=== PATIENT | female | born 1965 | race Caucasian/White ===

== ENCOUNTER 2016-09-16 17:03 | Emergency (ER) | payer OTHER ==
[~2016-09-16] VITALS: Ht 167.6 cm; Wt 64.0 kg
[2016-09-16 17:18] VITALS: Ht 167.6 cm; Wt 64.0 kg
[2016-09-16] MEDS ORDERED: IBUPROFEN 800 MG TAB PO ONE (19:00)
[2016-09-16] MEDS ORDERED: predniSONE 20 MG TAB PO ONE (19:00)
[2016-09-16] MEDS ORDERED: PRED20TA PO (19:03)
[2016-09-16] MEDS ORDERED: IBUP800T25 PO (19:03)
[2016-09-16] MEDS ORDERED: LORA-777 PO (19:03)
--- NOTE | 2016-09-16 19:08 | ERD ---
ER Documentation Chief Complaint Date/Time DATE: 09/16/16 TIME: 19:04 Chief Complaint ABD PX X 3 DAYS; HALL HPI 51-year-old female who complains of dull bitemporal headache with nasal congestion, sore throat, body aches and one episode of diarrhea this morning. No chest pain cough shortness of breath no abdominal pain. She complains of bilateral ear pain left more than right no loss of hearing no stiff neck or photophobia ROS All systems reviewed and are negative except as per history of present illness. Medications Home Meds Active Scripts Prednisone* (Prednisone*) 20 Mg Tab, 40 MG PO DAILY for 4 Days, TAB Prov:SUDHAKAR RECINOS DO 09/16/16 Loratadine/Pseudoephedrine (CLARITIN-D 24 HOUR TABLET) 1 Each Tab.er.24h, 1 TAB PO DAILY, #30 TAB Prov:SUDHAKAR RECINOS DO 09/16/16 Ibuprofen* (Motrin*) 800 Mg Tab, 800 MG PO Q6H Y for PAIN AND OR ELEVATED TEMP, #30 TAB Prov:SUDHAKAR RECINOS DO 09/16/16 PMhx/Soc Medical and Surgical Hx: pt denies Surgical Hx Hx Cardiac Disorders: Yes (HTN) Hx Miscellaneous Medical Probl: Yes (hypothyroidism) Hx Alcohol Use: No Hx Substance Use: No Hx Tobacco Use: No Smoking Status: Never smoker FmHx Family History: No coronary disease Physical Exam Vitals Vital Signs Date Time Temp Pulse Resp B/P Pulse Ox O2 Delivery O2 Flow Rate FiO2 09/16/16 17:18 97.5 95 18 141/83 99 Physical Exam Const: Well-developed, well-nourished Head: Atraumatic, normocephalic Eyes: Normal Conjunctiva, PERRLA, EOMI, normal sclera, no nystagmus ENT: Normal External Ears, bilateral serous otitis media left more than right no erythema nose and Mouth, moist mucus membranes. Neck: Full range of motion. No meningismus, no lymphadenopathy. Resp: Clear to auscultation bilaterally, no wheezing, rhonchi, rales Cardio: Regular rate and rhythm, no murmurs, S1 S2 present Abd: Soft, non tender x 4, non distended. Normal bowel sounds, no guarding or rebound, no pulsitile abdominal masses or bruits Skin: No petechiae or rashes, no ecchymosis , no maculopapular rash Back: No midline or flank tenderness Ext: No cyanosis, or edema, FROM x 4, normal inspection, neurovascularly intact x 4 Neur: Awake and alert, STR 5/5 x 4, sensation intact x 4, no focal findings, cerebellum intact Psych: Normal Mood and Affect Results 24 hrs Current Medications Medications (Trade) Dose Ordered Sig/Shanel Route PRN Reason Start Time Stop Time Status Last Admin Dose Admin Ibuprofen (Motrin) 800 mg ONCE ONCE PO 09/16/16 19:00 09/16/16 19:01 DC 09/16/16 18:44 Prednisone (Prednisone) 40 mg ONCE ONCE PO 09/16/16 19:00 09/16/16 19:01 DC 09/16/16 18:45 Procedures/MDM Patient has a viral illness we will treat symptomatically Departure Diagnosis: Primary Impression: Viral illness Condition: Stable Patient Instructions: Uri, Viral, No Abx (Adult), Serous Otitis Media Without Infection [Child] SUDHAKAR RECINOS DO Sep 16, 2016 19:08
== END 2016-09-16 19:27 | disposition home or self-care (01) ==
LOC: FTE 17:03
DX: B34.9 Viral infection, unspecified (principal); I10 Essential (primary) hypertension; E03.9 Hypothyroidism, unspecified
CPT/HCPCS: J7512; Z7502; Z7610; 99283